=== PATIENT | female | born 1965 | race Caucasian/White ===

== ENCOUNTER 2021-09-30 21:55 | Outpatient (CLI) | payer MEDICAID, SELFPAY | END 2021-09-30 23:59 | disposition home or self-care (01) | PROVIDERS: PCP Nurse Practitioner Primary Care; Referring Provider Internal Medicine Critical Care Medicine; Visit Provider Internal Medicine Critical Care Medicine | DX: G47.10 Hypersomnia, unspecified (principal) | CPT/HCPCS: 95810 ==

== ENCOUNTER 2021-10-02 08:16 | Outpatient (CLI) | payer MEDICAID, SELFPAY ==
--- NOTE | 2021-10-02 08:19 | CT_ITS ---
STUDY: LOW DOSE CT LUNG CANCER SCREENING REASON FOR EXAM: Female, 56 years old. 40+ pk/yr - screening RADIATION DOSAGE (If Supplied By Facility): CTDIvol = ( 2.01 ) mGy, DLP = ( 62.68 ) mGycm TECHNIQUE: No contrast was administered. Low dose technique was utilized (average mAS-38 and kVp 120). 1.25 mm axial source images with a slice interval of 1.25-mm were reconstructed in lung windows. 2.5 mm axial source images with a slice interval of 2.5-mm were reconstructed in lung windows. 5.0 mm axial source images with a slice interval of 5.0-mm were reconstructed in soft tissue windows. Nodule measured using lung windows on PACS and/or independent workstation with automated measurement of minimum and maximum diameter. Nodule measurement reported as average diameter rounded to the nearest whole number. Growth is defined as an increase ins size of greater than 1.5 mm. COMPARISON: None. NODULES: No suspicious nodules are seen. Emphysema: Hyperinflation. Mild degree of emphysematous changes more prominent in the upper lobes. Minimal increased markings at the lung bases suggestive of either bibasilar atelectasis versus scarring. Endobronchial lesion: None Aorta: Mild atherosclerotic plaque formation at the level of the aortic arch. Coronary arteries: Mild coronary artery calcification. Heart: Unremarkable. Pulmonary artery: Unremarkable. Mediastinal nodes: Small benign-appearing mediastinal lymph nodes. Other chest and abdominal findings: CT/Low Dose CT Lung Screening IMPRESSION: Lung-RADS category 2 - Continue annual screening with LDCT in 12 months. IMPORTANT NOTES FOR USE: ACR Lung-RADS Version 1.1 Assessment Categories Release Date: 2018 Category: Coded 0-4 bases on nodule(s) with highest degree of suspicion. Negative screen is defined as categories 1 and 2; a positive screen is defined as categories 3 and 4. Category 3 and 4A nodules that are unchanged on interval CT should be coded as category 2, and individuals returned to screening in 12 months. Category 4X: Category 3 or 4 nodules with additional imaging findings that increase the suspicion of lung cancer, such as spiculation, GGN that doubles in size in 1 year, enlarged lymph notes, etc. Category Modifiers: S (significant finding unrelated to lung cancer) Electronically Signed: Sathya Barrow MD at 10:40 EST ,
--- NOTE | 2021-10-03 12:20 | PFT ---
INTRODUCTION: The patient is a 56-year-old female that presents for pulmonary function studies secondary to a diagnosis of dyspnea. Respiratory therapy reported good patient effort. Bronchodilators were used during testing. INTERPRETATION: Forced expiration spirometry demonstrates no evidence of a large airways obstructive ventilatory defect. There was no significant response to aerosolized bronchodilators. Spirograms are of good quality and plateau normally. Body plethysmography was performed and reveals lung volumes to be within normal limits. Diffusing capacity by single breath CO is also within normal limits. IMPRESSION: Grossly normal pulmonary function studies.
== END 2021-10-02 23:59 | disposition home or self-care (01) ==
LOC: PSN 08:17
PROVIDERS: PCP Nurse Practitioner Primary Care; Referring Provider Internal Medicine Critical Care Medicine; Visit Provider Internal Medicine Critical Care Medicine
DX: Z12.2 Encounter for screening for malignant neoplasm of respiratory organs (principal); R06.00 Dyspnea, unspecified; Z87.891 Personal history of nicotine dependence
CPT/HCPCS: 71271; 94060; 94726; 94729

== ENCOUNTER 2021-10-07 12:14 | Outpatient (CLI) | payer MEDICAID, SELFPAY ==
[2021-10-07 12:46] VITALS: PULSE 66; PULSE 67; PULSE 74; PULSE 76; PULSE 77; PULSE 78; O2SAT 98; O2SAT 99
--- NOTE | 2021-10-07 13:38 | PCM.PSN.6M ---
PSN 6 Minute Walk Test 6 Minute Walk Test 6 Minute Walk Test: 6 Minute Walk Test PSN:6-Minute Walk Test Start: 10/07/21 12:46 Freq: Status: Active Protocol: [id number].6MINW Document 10/07/21 12:46 DEEDEE (Rec: 10/07/21 12:48 DEEDEE [id number]) 6 Minute Walk Test Date Performed 10/07/21 Time Performed 12:30 Height 4 ft 11 in Weight: 52.163 kg Weight in Pounds 115.[address]: Jose Juan Reed Assistive device used: None Pre-test Oxygen Delivery Method Room Air Pulse Ox (%) 98 Pulse Rate (60-100 beats/min) 66 Dyspnea Jcarlos Scale (0-10) 0 Exertion Jcarlos Scale (6-20) 6 1st minute Oxygen Delivery Method Room Air Pulse Ox (%) 98 Pulse Rate (60-100 beats/min) 74 2nd minute Oxygen Delivery Method Room Air Pulse Ox (%) 98 Pulse Rate (60-100 beats/min) 76 3rd minute Oxygen Delivery Method Room Air Pulse Ox (%) 98 Pulse Rate (60-100 beats/min) 78 4th minute Oxygen Delivery Method Room Air Pulse Ox (%) 98 Pulse Rate (60-100 beats/min) 78 5th minute Oxygen Delivery Method Room Air Pulse Ox (%) 98 Pulse Rate (60-100 beats/min) 77 6th minute Oxygen Delivery Method Room Air Pulse Ox (%) 98 Pulse Rate (60-100 beats/min) 76 Dyspnea Jcarlos Scale (0-10) 2 Exertion Jcarlos Scale (6-20) 12 Post-test Oxygen Delivery Method Room Air Pulse Ox (%) 99 Pulse Rate (60-100 beats/min) 67 Full Laps Walked 18 Partial Lap, Number of Tiles Walked 20 Total Distance Walked (ft) 1082 Interpretation Interpretation: Patient was able to ambulate 1082 feet over the course of 6 minutes on room air with no assist devices or breaks. The patient experienced no significant desaturation or tachycardia with ambulation. These findings are consistent with a normal walking oximetry. Recommendations Recommendations: No supplemental oxygen is indicated at this time.
== END 2021-10-07 23:59 | disposition home or self-care (01) ==
LOC: PSN 12:14
PROVIDERS: PCP Nurse Practitioner Primary Care; Referring Provider Internal Medicine Critical Care Medicine; Visit Provider Internal Medicine Critical Care Medicine
DX: R06.00 Dyspnea, unspecified (principal)
CPT/HCPCS: 94618

== ENCOUNTER 2022-03-20 05:34 | Emergency (ER) | payer MEDICAID, SELFPAY ==
[2022-03-20 05:35] VITALS: BP 148/73; PULSE 60; RESP 15; TEMP 37.1; O2SAT 94; BMI 22.9
[2022-03-20] MEDS: Ketorolac 30 MG/ML Syringe IV (06:09)
[2022-03-20] MEDS: Orphenadrine 60 MG/2 ML Ampul IV (06:11)
--- NOTE | 2022-03-20 06:26 | EX.ED.DYSGE1 ---
HPI History of Present Illness Chief Complaint: Other, Pain/Inj Narrative Narrative: Patient is a 56-year-old female with past medical history of smoking as well as depression. She states for about 1 to 2 weeks she has had pain in her left sided ribs. She denies any trauma or excessive lifting fevers chills dysuria or hematuria associated with this. She states that she has been giving the symptoms time to resolve and they have not done so and secondary to this she presents for evaluation [facility] Medical History Depression Seizure disorder Home Medications albuterol sulfate 90 mcg/actuation aerosol inhaler 2 puff inhalation Q6H PRN 09/16/21 [History Last Taken Unknown] hydroxyzine HCl 10 mg tablet 10 mg PO BID 09/16/21 [History Last Taken Unknown] levetiracetam 1,000 mg tablet (Keppra) 1,000 mg PO BID 09/16/21 [History Last Taken Unknown] melatonin 5 mg capsule mg PO 09/16/21 [History Last Taken Unknown] olanzapine-fluoxetine 6 mg-50 mg capsule 1 cap PO QHS 09/16/21 [History Last Taken Unknown] omeprazole magnesium 20 mg tablet,delayed release (Prilosec OTC) 20 mg PO DAILY 09/16/21 [History Last Taken Unknown] prazosin 1 mg capsule 1 mg PO QHS 09/16/21 [History Last Taken Unknown] methocarbamol 500 mg tablet 1,000 mg PO 4X/DAY PRN PRN Muscle pain/spasm #56 tabs 03/20/22 [Rx Last Taken Unknown] oxycodone-acetaminophen 5 mg-325 mg tablet (Endocet) 1 tab PO Q6H PRN pain 3 days #12 tabs 03/20/22 [Rx Last Taken Unknown] Allergy/AdvReac Type Severity Reaction Status Date / Time No Known Allergies Allergy Verified 03/20/22 05:38 Family History Father Cancer Mother Cancer Aunt Diabetes Myocardial infarction Surgical History H/O tubal ligation Social History Smoking Status: Current every day smoker tobacco type: cigarettes Tobacco: How many years used: 41 substance use type: marijuana and crack/cocaine ROS ROS ED Constitutional Constitutional ED: Denies chills or fever(s) ENT ENT ED: Denies sore throat Cardiovascular Cardiovascular: Reports chest pain; Denies palpitations or racing heartbeat Respiratory/Chest Respiratory/Chest: Reports cough; Denies dyspnea Gastrointestinal Gastrointestinal: Denies abdominal pain, diarrhea, nausea or vomiting Genitourinary Genitourinary ED: Denies dysuria or hematuria Musculoskeletal Musculoskeletal: Denies back pain or myalgias Integumentary Denies rash Neurologic Neurologic: Denies headache(s) or paresthesias Hematologic/Lymphatic Hematologic/Lymphatic: Denies easy bleeding or easy bruising EXAM Physical Exam Const Vital Signs: 03/20/22 05:35 03/20/22 05:39 Temperature 98.8 F Temperature Source Temporal Pulse Rate 60 Respiratory Rate 15 Respiratory Effort Non-Labored Respiratory Pattern Normal Blood Pressure 148/73 H Blood Pressure Mean 98 Pulse Ox 94 Oxygen Delivery Method Room Air Positive well nourished and well developed General Appearance ED: well developed HEENT HEENT Narrative: No tongue or lip swelling no airway edema or compromise Eyes PERRL and EOMs intact bilaterally Neck supple Chest Wall Chest Narrative: There is pain on palpation of the left anterior lateral chest wall rib regions 7-10 without obvious bony deformity or crepitus noted Resp normal respiratory effort Resp Narrative: Breath sounds are diminished throughout with diffuse expiratory wheezes consistent with history of smoking. Otherwise no nasal flaring retractions tachypnea or accessory muscle use Cardio regular rate and regular rhythm Rate: other Other Details: Radial pulses are plus 2 out of 4 bilaterally are equal and symmetric GI normal to inspection, nondistended, normoactive bowel sounds, non-tender and non-distended GI Narrative: No voluntary guarding or rigidity no pulsatile mass Auscultation: normoactive bowel sounds Palpation: soft Back/Spine no CVA tenderness Extremity normal to inspection Extremity Narrative: No asymmetric edema no pitting edema negative Homans' sign bilaterally Neuro oriented x3 and CN's II-XII intact bilaterally Sensorium / Orientation: alert Psych mental status grossly normal Skin no rashes or lesions noted MDM MDM MDM Narrative Medical decision making narrative: Patient presented to the ER slightly hypertensive but otherwise with stable vitals and in no acute respiratory distress. She reported 1 to 2 weeks of left-sided chest wall/rib pain that worsened with activities such as coughing sneezing or breathing. She denied any type of trauma prior to the pain beginning and her physical exam showed no overlying soft tissue changes to suggest this. A left rib series was initially obtained to look for possible infection rib fracture or pneumothorax as a cause of her pain. X-ray did not show any type of acute abnormality. Patient's pain was still present as well and therefore I elected to perform basic laboratory studies with EKG. I feel that if work-up is negative for any type of acute coronary syndrome with elevation to troponin or D-dimer and patient is otherwise safe for discharge with symptomatic care. Radiography Diagnostic Testing: Left rib series x-ray interpreted by the emergency medicine physician reveals no acute rib fracture pneumothorax or pleural effusion Discharge Plan Triage Chief Complaint: Other, Pain/Inj ED Provider: Santhosh Jaramillo Dx/Rx/DC Orders Clinical Impression: Chest wall pain, Tobacco abuse, Intercostal muscle strain Instructions: ED Chest Pain, Uncertain Cause Prescriptions: New oxycodone-acetaminophen [Endocet] 5-325 mg tablet 1 tab PO Q6H PRN (Reason: pain) 3 Days Qty: 12 0RF methocarbamol 500 mg tablet 1,000 mg PO 4X/DAY PRN PRN (Reason: Muscle pain/spasm) Qty: 56 0RF No Action levetiracetam [Keppra] 1,000 mg tablet 1,000 mg PO BID hydroxyzine HCl 10 mg tablet 10 mg PO BID omeprazole magnesium [Prilosec OTC] 20 mg tablet,delayed release (DR/EC) 20 mg PO DAILY melatonin 5 mg capsule PO olanzapine-fluoxetine 6-50 mg capsule 1 cap PO QHS prazosin 1 mg capsule 1 mg PO QHS albuterol sulfate 90 mcg/actuation HFA aerosol inhaler 2 puff inhalation Q6H PRN Primary Care Provider: Alok Junior NP Referrals: Alok Junior [employer], [employer] [Primary Care Provider] - Activity Restrictions/Additional Instructions: Your work-up today did not reveal any obvious signs of kidney stone or kidney infection or heart disease or broken rib or pneumonia. Your symptoms are most consistent with a strain to the intercostal rib muscles. Please take the medication as directed to help control your symptoms and return to the ER should you have any further concerns Disposition Disposition: Home, Self Care
--- NOTE | 2022-03-20 06:30 | RAD_ITS ---
STUDY: X-RAY - UNILATERAL RIBS ( LEFT ) WITH CHEST REASON FOR EXAM: Female, 56 years old. Anterior left rib pain following a fall. TECHNIQUE - RIBS: 2 view(s) of the ribs. TECHNIQUE - CHEST: Single PA view of the chest. COMPARISON: None. FINDINGS - RIBS: Normal visualized ribs without a demonstrated fracture. FINDINGS - CHEST: Hyperinflation. The lungs are clear. There is no demonstrated pleural abnormality. Normal size heart. Normal mediastinum and frank. Normal visualized pulmonary arteries. Normal visualized aortic arch and descending thoracic aorta. Normal visualized thoracic spine. Normal visualized ribs, clavicles, and shoulders. There is no demonstrated abnormality of the visualized soft tissue structures of the upper abdomen. RAD/Ribs Uni Min 3V w/PA Chest IMPRESSION: RIBS: Normal x-ray examination of the ribs. CHEST: Hyperinflation. The lungs are clear. Electronically Signed: Sathya Barrow MD at 9:28 EDT ,
--- NOTE | 2022-03-20 07:04 | EKG12_ITS ---
Test Reason : OTHER JEFF Blood Pressure : / mmHG Vent. Rate : 049 BPM Atrial Rate : 049 BPM P-R Int : 116 ms QRS Dur : 074 ms QT Int : 464 ms P-R-T Axes : 057 055 060 degrees QTc Int : 419 ms Sinus bradycardia Otherwise normal ECG No previous ECGs available Confirmed by CESAR HUNT, VIDHI ([id number]), online content editor DONNIE BEAULIEU ([id number]) on 03/24/2022 10:19:59 AM Referred By: JAZZ Confirmed By:VIDHI GUERRERO MD
[2022-03-20 07:22] LABS: Absolute Neutrophil Count 7.2 X10^3/uL (2.0-7.7); Basophil# 0.05 X10^3/uL; Basophil% 0.4 % (0-1); Eosinophil# 0.23 X10^3/uL; Eosinophils% 2.1 % (0-5); Hematocrit 44.5 % (37-47); Hemoglobin 14.8 g/dL (12.0-15.0); Lymphocyte % 27.7 % (19-41); Mean Corp Hgb Conc 33.3 g/dL (32-36); Mean Corpuscular Hgb 31.2 pg (27.0-32.0); Mean Corpuscular Volume 93.9 fL (81-99); Monocyte# 0.65 X10^3/uL; Monocyte% 5.8 % (0-10); NRBC Flagged by Analyzer 0 % (0-5); Neutrophil # 7.15 X10^3/uL (2.7-7.7); Neutrophil % 63.8 % (47-70); Platelet Count 320 K/mm3 (150-450); RBC Distribution Width SD 48.7 fl (35.1-43.9); Red Blood Count 4.74 M/mm3 (4.2-5.4); White Blood Count 11.2 K/mm3 (4.4-11.0)
[2022-03-20 07:46] LABS: Color, Urine Yellow (Yellow); Glucose, Dipstick Normal (Normal); Ketone-Dipstick Negative (Negative); Leukocyte Esterase-Dipstick 100 /ul (Negative); Nitrite-Dipstick Positive (Negative); Occult Blood-Urine 25 /ul (Negative); Protein-Dipstick 15 mg/dl (Negative); Specific Gravity, Urine 1.025 (1.002-1.030); Urine Bilirubin Dipstick Negative (Negative); Urine Clarity Sl. Cloudy (Clear); Urine Urobilinogen Normal (Normal)
[2022-03-20 07:48] LABS: Anion Gap 5 (5-15); BUN 17 mg/dL (7-18); BUN/Creat Ratio 15.7 RATIO (10-20); Calcium,Total 9.1 mg/dL (8.5-10.1); Chloride 112 mmol/L (98-107); Creatinine, Serum 1.08 mg/dL (0.55-1.02); EST Glomerular Filtration Rate 56 mL/min (>60); Est Glom Filt Rate - Afr Amer 68 mL/min (>60); Estimated Creatinine Clearance 48.41 ml/min; Glucose 81 mg/dL (74-106); Potassium 3.9 mmol/L (3.5-5.1); Sodium Level 144 mmol/L (136-145); Troponin-I HS 4 pg/mL (3.0-54.0)
[2022-03-20 07:59] LABS: White Blood Cells 10-25 SEEN /hpf (0-5)
[2022-03-20 08:00] LABS: Squamous Epithelial Cells - UA 0-5 SEEN /hpf (5-10)
[2022-03-20 08:02] LABS: Bacteria 3+ /hpf (None Seen)
[2022-03-20 08:11] LABS: Red Blood Cells-Urine 0 SEEN /hpf (0-5)
[2022-03-20 08:12] LABS: Mucous, Urine 0 SEEN /hpf (<or=2+)
[2022-03-20 08:15] LABS: D-Dimer Quantitative (DVT/PE) 0.53 FEU/ug/m (0.27-0.49)
[2022-03-20 08:53] VITALS: BP 153/81; PULSE 50; RESP 16; O2SAT 98
[2022-03-20] MEDS: Smz/Tmp Ds Tablet 1 TABLET PO (09:36)
[2022-03-20 09:38] VITALS: PULSE 58; RESP 16; O2SAT 98
== END 2022-03-20 09:39 | disposition home or self-care (01) ==
PROVIDERS: Emergency Medicine; Emergency Provider Emergency Medicine; PCP Nurse Practitioner Primary Care; Visit Provider Emergency Medicine
DX: S29.011A Strain of muscle and tendon of front wall of thorax, initial encounter (principal); G40.909 Epilepsy, unspecified, not intractable, without status epilepticus; X58.XXXA Exposure to other specified factors, initial encounter; F32.A Depression, unspecified; F17.210 Nicotine dependence, cigarettes, uncomplicated; Z79.899 Other long term (current) drug therapy
CPT/HCPCS: 71101; 80048; 81001; 84484; 85025; 85379; 87086; 87088; 87186; 93005; 96374; 96375; 99283; A4216

== ENCOUNTER → 2023-03-09 | Outpatient (CLI) | payer MEDICAID, SELFPAY ==
--- NOTE | 2023-03-10 05:39 | PFTCOMP ---
COMPLETE PULMONARY FUNCTION TEST INTERPRETATION Brief HPI: Patient is a 57-year-old female, currently under the care of myself, who presents to [facility] for complete pulmonary function tests secondary to diagnosis of dyspnea. Respiratory therapist reports good effort and reproducible results. Interpretation: Forced expiration spirometry shows a moderate large airways obstructive ventilatory defect with an FEV1 of 67% predicted. There is no significant bronchodilator response by strict ATS criteria. Spirograms are of good quality and plateau slowly, indicating slowly emptying areas of the lungs. The respiratory flow volume loop shows decreased expiratory flow rates at all lung volumes consistent with airway obstruction. Lung volumes by body plethysmography show a normal total lung capacity at 4.04 L, 103% predicted. All other lung volumes are within normal limits. Diffusion capacity by carbon monoxide is normal at 77% predicted. The airway resistance is normal. Compared to previous pulmonary function tests from 1021, there is been a significant reduction in FEV1 by 21%. Impression: Irreversible moderate large airways obstructive ventilatory defect with relatively preserved lung volumes and DLCO, and a pattern consistent with chronic bronchitis. There has been significant worsening since September 2021
== END | disposition home or self-care (01) ==
LOC: PSN 08:27
PROVIDERS: PCP Nurse Practitioner Primary Care; Referring Provider Internal Medicine Critical Care Medicine; Visit Provider Internal Medicine Critical Care Medicine
DX: R06.00 Dyspnea, unspecified (principal)
CPT/HCPCS: 94060; 94726; 94729